=== PATIENT | male | born 2000 | race Two or more races ===

== ENCOUNTER 2025-01-11 13:03 | Emergency (ER) | payer OTHER, SELFPAY ==
[2025-01-11 13:04] VITALS: BMI 26.0
[2025-01-11 13:16] VITALS: BP 119/79
[2025-01-11] MEDS: ADACEL 0.5 ML IM (15:01)
--- NOTE | 2025-01-13 03:43 | ED.GENMED ---
History of Present Illness
General
Chief Complaint: Skin Surface Trauma
Source: patient
Exam Limitations: none
Time Seen by Provider: 01/11/25 13:48
Nursing documentation reviewed up to this point in time: agreed with
History of Present Illness
History of Present Illness:
see MDM
Past History
Past History
ED Past Medical History: None
ED Past Surgical History: None
Social History
Tobacco: Non-smoker
Review of Systems
Review of Systems
Allergies reviewed?: Yes
All Other Systems: Not applicable
Phy Exam
Physical Exam
Physical Exam:
seE mdm
Course
Orders/Labs/Results
Orders:
Orders
01/11/25 13:15
Hand, Right 3 View [CR Hand - Right Min 3 Views] Urgent
Comment:
Reason For Exam: poosible glass
01/11/25 14:56
Tetanus/Diphth/Acelpertussis [Adacel] 0.5 ml IM .ONCE ONE
Vital Signs
Initial and Last Documented VS:
Initial Vital Signs
Temp Pulse Resp BP Pulse Ox
37.1 C 75 16 119/79 98
01/11/25 13:16 01/11/25 13:16 01/11/25 13:16 01/11/25 13:16 01/11/25 13:16
Last Documented Vital Signs
Temp Pulse Resp BP Pulse Ox
37.1 C 75 16 119/79 98
01/11/25 13:16 01/11/25 13:16 01/11/25 13:16 01/11/25 13:16 01/11/25 13:16
MDM/Problems Addressed
Differential Diagnosis Includes:
see MDM
MDM/Problems Addressed:
Note:
CHIEF COMPLAINT(S)
Puncture wound to the hand from broken glass
HISTORY OF PRESENT ILLNESS
The patient, 24 y/o R hand dominant male, presented with a hand injury sustained at home after accidentally making contact with a drinking glass. The incident involved the hand coming into contact with the broken glass, causing a puncture wound. The
patient expressed concern about potential glass fragments remaining in the wound. There was no history of the patient punching anything or sustaining the injury through a forceful action, and he was uncertain about the presence of any glass shards.
The patient requested to have the wound cleaned and possibly dressed for optimal healing. no numbness/tinglingweakness
PHYSICAL EXAM
GENERAL: Alert , in no apparent distress, comfortable at rest
HEAD: NCAT
CV: 2+ radial pulse, cap refill intact
NEUROLOGICAL: Alert and oriented, no focal neuro deficits, , 5/5 strength, sensation intact, ambulation slight limp right leg
SKIN: Warm and dry, few small lacerations to the right 4th and 5th knuckles dorsally measuring approximately 0.5 cm total
MUSCULOSKELETAL: lacerations dorsally to the right 4th and 5th MCP joints, not deep, full range of motion, sensation intact, no evidence of foreign body
PSYCH: Normal and appropriate interaction.
Nursing notes reviewed and vital signs reviewed.
PLAN
- Evaluate the hand wound under appropriate lighting to check for any remaining glass fragments.
- Clean the wound thoroughly to minimize the risk of infection.
- Consider application of steri-strips for wound closure if necessary, rather than sutures, to prevent infection complications.
DIFFERENTIAL DIAGNOSIS
The Differential Diagnosis includes, in no particular order and is not limited to:
- Foreign body retention in the wound
- Infection of the wound
- Tendon injury
- Nerve injury
- Hematoma formation
- Laceration with potential involvement of deeper structures
- Delayed wound healing
- Scarring
- Glass-induced dermatitis
- Need for further imaging if glass fragments are suspected
24-year-old [id number] male with multiple laceration of the right dorsal hand after accidentally cutting it with a glass that he was holding that broke. He has full range of motion of the fingers but he is concerned about glass foreign
body within the wound. There is no evidence of foreign body on x-ray independently reviewed by me and also by radiology
Wounds were irrigated and Steri-Stripped, dry dressing applied
Tetanus updated
,
*Pulse Oximetry
SaO2: 98
Oxygen Mode of Delivery: Room air
Patient hypoxic: no (98)
*Critical Care Note
Total Time (30-74mins, 75-104mins- exclusive of procedures): Not Applicable
ED Attending Note
-
Portions of this chart may have been created with voice recognition software.� Occasional wrong word or��sound alike� substitutions may have occurred due to the inherent limitations of voice recognition software.
Discharge Plan
Departure
Patient Disposition: Home (Routine Discharge)
Date of Disposition: 01/11/25
Time of Disposition: 14:59
Patient with high blood pressure during this ER visit?: No
Condition: Fair
Covid-19: Not Applicable
Discharge Problem:
Laceration of hand
Instructions: Wound Care (DC)
Prescriptions:
No Action
No Current Medications
0
Referrals:
Zen Rosario MD [Family Provider, Internal Medicine]
Activity Restrictions/Additional Instructions:
Your x-ray did not show any obvious signs of foreign body like glass in your hand however this can be difficult to see so I did irrigate and then apply Steri-Strips. Keep the wounds clean and dry for 24 hours, after that you can get it wet, the
Steri-Strips will peel up and fall off. Take Tylenol or ibuprofen for pain. Watch for signs of infection like redness or swelling or drainage or pain etc. and return as needed. Otherwise the wound should heal
Interventions
Interventions:
*Risk Screen - Suicide Last Done: 01/11/25 13:16
*General Assessment Last Done: 01/11/25 13:16
*Neglect/Abuse Screening Last Done: 01/11/25 13:16
*ED- Fall Risk Assessment Last Done: 01/11/25 13:16
*ED COVID-19 Vaccine History Last Done: 01/11/25 13:16
*ED Influenza Vaccine History Last Done: 01/11/25 13:16
*Nursing Disposition Last Done: 01/11/25 15:05
ED-Skin Assessment Last Done: 01/11/25 13:50
Discharge Date and Time
Discharge Date/Time: 01/11/25 15:05
Print Language: CAMBODIAN
== END 2025-01-11 15:05 | disposition home or self-care (01) ==
LOC: EMR 13:03
PROVIDERS: EMERGENCY PHYSICIAN Emergency Medicine; FAMILY PHYSICIAN Internal Medicine
DX: S61.411A Laceration without foreign body of right hand, initial encounter (principal); W25.XXXA Contact with sharp glass, initial encounter; Y92.009 Unspecified place in unspecified non-institutional (private) residence as the place of occurrence of the external cause; Z23 Encounter for immunization
CPT/HCPCS: 99283; 90471; 73130; 90715